=== PATIENT | female | born 1985 | race Caucasian/White ===

== ENCOUNTER 2019-03-06 10:00 | Inpatient (IN) | payer OTHER, SELFPAY ==
[2019-03-06 05:59] VITALS: BMI 25.2
--- NOTE | 2019-03-06 08:47 | OB.TRI.NOTE ---
- Problem List (1) False labor after 37 completed weeks of gestation Status: Acute History of Present Illness Date of Service: 03/06/19 Was patient seen by the physician?: Yes Reason For Visit: R/O LABOR Date of Service: 03/06/19 Final NIDHI: 03/17/19 Final NIDHI Source: US <20 weeks Gestational age: 38 Weeks and 3 Days History of Present Illness: Patient presents to hospital triage after having regular contractions q 4-5 minutes and lasting 30-60seconds in length. Patient at this time reports she has not been timing contractions and she believes they are the same length and duration; she notes she also has lost her mucus plug. Patient is calmly talking and no contractions were witnessed in the 10 minutes that this provider was in the room. Allergies Sulfa (Sulfonamide Antibiotics) Adverse Reaction (Verified 03/06/19 06:37) Unknown pt reports family hx of sulfa allergy, pt states she has never taken this med, just avoids it due to family hx Review of Systems Constitutional: Denies: Chills, Fever, Weight Change HEENT: Denies: Head Aches, Sinus Congestion, Sinus Drainage Cardiovascular: Denies: Chest Pain, Palpitations Respiratory: Denies: Cough, Shortness of breath at rest, Sputum production Gastrointestinal: Denies: Abdominal Pain, Nausea, Vomiting Genitourinary: Denies: Dysuria Musculoskeletal: Denies: Joint Pain, Joint Tenderness Skin: Denies: Rash, Wounds Neurological: Denies: Numbness, Tingling, Focal weakness Psychiatric: Denies: Anxiety, Depression, Homicidal Ideations, Suicidal Ideations Hematologic/ Lymphatic: Denies: Easy Bruising, Easy Bleeding Physical Exam Vitals: VSS, Afebrile General: Alert, Oriented x3, No apparent distress HEENT: Atraumatic, Normocephalic. 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 Negative for: Vulvar lesions Estimated gestational size: Appropriate for gestational size Presentation: Cephalic Cervix Dilation (cm): 3 - posterior cervix Station: -2 Effacement (%): 60 NST - FHR Rate Baby A Baseline: Category I FHT Variability:: Moderate Accelerations:: 15 x 15 Decelerations:: None NST Reactive:: Yes, Appropriate for gestational age FHR Category:: Category I Uterine Activity:: No palpable contractions noted Impression/Plan 33 y/o @ 38+3 weeks, Cateogyr I FHT, False Labor P: 1) Discharge patient to home with labor and [facility] precautions 2) RTC in office as scheduled Reta SMART
[2019-03-06] MEDS: Lactated Ringers 1,000 ML 50 ML IV ×2 (11:00→12:10)
[2019-03-06 11:20] LABS: Absolute Lymphocyte Count 1.95 X10^3/ul (0.83-4.51); Absolute Neutrophil Count 7.9 X10^3/uL (2.0-7.7); Basophil# 0.01 X10^3/uL; Basophil% 0.1 % (0-1); Eosinophil# 0.02 X10^3/uL; Eosinophils% 0.2 % (0-5); Hematocrit 37.7 % (37-47); Hemoglobin 13.3 g/dl (12.0-15.0); Lymphocyte # 1.95 X10^3/ul (4.0); Lymphocyte % 18.7 % (19-41); Mean Corp Hgb Conc 35.3 g/gl (32-36); Mean Corpuscular Hgb 32.4 pg (27.0-32.0); Mean Platelet Vol. 10.6 fl (6.2-12.0); Monocyte# 0.55 X10^3/uL; Monocyte% 5.3 % (0-10); Neutrophil # 7.87 X10^3/uL (2.7-7.7); Neutrophil % 75.5 % (47-70); Platelet Count 176 K/mm3 (150-450); RBC Distribution Width CV 13.1 % (11.6-14.6); RBC Distribution Width SD 43.1 fl (35.1-43.9); White Blood Count 10.4 K/mm3 (4.4-11.0)
[2019-03-06 11:22] LABS: POSITIVE COUNT NO; POSITIVE DIFFERENTIAL NO; POSITIVE MORPHOLOGY NO
--- NOTE | 2019-03-06 11:25 | HP.PCM_ITS ---
- Problem List (1) False labor after 37 completed weeks of gestation Status: Resolved (2) Active labor at term Status: Acute History Date of Admission: 03/06/19 Final NIDHI: 03/17/19 Final NIDHI Source: US <20 weeks Gestational age: 38 Weeks and 3 Days History of this : This is a 33 year-old, G [], P [], at weeks gestational age. Allergies Sulfa (Sulfonamide Antibiotics) Adverse Reaction (Verified 03/06/19 06:37) Unknown pt reports family hx of sulfa allergy, pt states she has never taken this med, just avoids it due to family hx Home Medications: Home Medications Vits 1 tab PO DAILY 04/03/15 Smoking Status: Never smoker Alcohol: None Number of Fetus(es): 1 Heart Tracing: Baseline 145, moderate variability, +accels, few early decels TOCO Analysis: Ctx q 1-4 minutes, mild to moderate palpation History Past Pregnancies: Past Pregnancies Delivery Date Name GA/Weeks Outcome Route Weight Infant Gender Labor Length Anesthesia Delivery Location Provider FOB Labs: See [facility] Record for Labs Expected Delivery Method: Spontaneous Vaginal Describe any other labor & delivery plans:: Patient desires epidural Number of Visits: >12 Review of Systems Constitutional: Denies: Chills, Fever, Weight Change HEENT: Denies: Head Aches, Sinus Congestion, Sinus Drainage Cardiovascular: Denies: Chest Pain, Palpitations Respiratory: Denies: Cough, Shortness of breath at rest, Sputum production Gastrointestinal: Denies: Abdominal Pain, Nausea, Vomiting Genitourinary: Denies: Dysuria Musculoskeletal: Denies: Joint Pain, Joint Tenderness Skin: Denies: Rash, Wounds Neurological: Denies: Numbness, Tingling, Focal weakness Psychiatric: Denies: Anxiety, Depression, Homicidal Ideations, Suicidal Ideati ons Hematologic/ Lymphatic: Denies: Easy Bruising, Easy Bleeding Physical Exam Vitals: See Nursing note for vital signs - VSS, Afebrile General: Alert, Oriented x3, No apparent distress HEENT: Atraumatic, Normocephalic. 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 Negative for: Vulvar lesions Estimated gestational size: Appropriate for gestational size - EFW = 7# Presentation: Cephalic Cervix Dilation (cm): 4 - Per RN Station: -2 Effacement (%): 80 Assessment/Plan All Active Problems False labor after 37 completed weeks of gestation (Resolved) Active labor at term (Acute) This is a 33 year-old, G [3], P [2], at 38+3 weeks gestational age, Active Labor, Category I FHT. P: 1) Admit patient for labor - patient has now changed cervix 2) Patient desires epidural - epidural on request 3) Dr. Romo notified of admission 4) Anticipate Reta Castro APRN-VLADISLAV
[2019-03-06] MEDS: fentaNYL-bupivacaine (epidural) 100 ML BAG EPIDURAL (12:09)
--- NOTE | 2019-03-06 12:42 | PN.OBGYN_ITS ---
Patient Problems: Active and Suspected Problems Active labor at term (Acute) Subjective: Patient is comfortable after receiving her epidural, patient reports comfort now. Patient requests SVE and is open to AROM if baby is well positioned to help augment labor. Objective: VSS, Afebrile FHT baseline 150, moderate variability, + accels, rare variable decels noted Ctx q 2-3 minutes, palpate moderately strong SVE = 5/80/-1, AROM for clear to pink-tinged fluid - Physical Exam General: Alert, Oriented x3, Cooperative HEENT: Atraumatic, Normocephalic Neck: Supple Lungs: Normal air movement Cardiovascular: Regular rate, No murmurs Abdomen: Soft, Non Tender Extremities: No edema, Capillary Refill Less than 3 Seconds Skin: No rashes, No breakdown Musculoskeletal: No Tenderness to Palpation of Joints or Extremities Neurological: Cranial nerves II-XII grossly intact Psych/Mental Status: Normal Affect, Appropriate Weight: 146 lb 12.8 oz Body Mass Index (BMI) 25.2 Laboratory Tests Past 24 Hrs 03/06/19 03/06/19 11:00 11:00 WBC 10.4 RBC 4.10 L Hgb 13.3 Hct 37.7 MCV 92.0 MCH 32.4 H MCHC 35.3 RDW 13.1 RDW Differential 43.1 Plt Count 176 MPV 10.6 Immature Gran % (Auto) 0.200 Neut % (Auto) 75.5 H Lymph % (Auto) 18.7 L [place] % (Auto) 5.3 Eos % (Auto) 0.2 Baso % (Auto) 0.1 Absolute Neuts (auto) 7.9 H Absolute Lymphs (auto) 1.95 Total Counted Not Reportable Blood Type O POSITIVE Antibody Screen NEGATIVE Medical Necessity - Tobacco Use Smoking Status: Never smoker Assessment/Plan All Active Problems False labor after 37 completed weeks of gestation (Resolved) Active labor at term (Acute) 33 y/o , Category I FHT, Active Labor, AROM for Labor Augmentation P: 1) continue present management 2) Anticipate 3) Dr. Demetrius SCHAEFFER OB back-up updated about patient status Reta Castro APRN-CNM
--- NOTE | 2019-03-06 13:53 | PN.OBGYN_ITS ---
Patient Problems: Active and Suspected Problems Active labor at term (Acute) Subjective: Variable decels noted so RN checked patient noted that cervix was 8cm dilated. Kitchen Help Handyman called to room to assess patient. Objective: VSS, Afebrile FHT baseline 120, moderate variability, repetitive variable decels noted Ctx q 2-3 minutes, moderately strong to palpation SVE = 9/100/-1, pink tinged fluid noted on glove - Physical Exam Weight: 146 lb 12.8 oz Body Mass Index (BMI) 25.2 Intake and Output for Last 24 Hours 03/04/19 03/05/19 03/06/19 23:59 23:59 23:59 Intake Total 1200 / 1200 Balance 1200 / 1200 Laboratory Tests Past 24 Hrs 03/06/19 03/06/19 11:00 11:00 WBC 10.4 RBC 4.10 L Hgb 13.3 Hct 37.7 MCV 92.0 MCH 32.4 H MCHC 35.3 RDW 13.1 RDW Differential 43.1 Plt Count 176 MPV 10.6 Immature Gran % (Auto) 0.200 Neut % (Auto) 75.5 H Lymph % (Auto) 18.7 L [place] % (Auto) 5.3 Eos % (Auto) 0.2 Baso % (Auto) 0.1 Absolute Neuts (auto) 7.9 H Absolute Lymphs (auto) 1.95 Total Counted Not Reportable Blood Type O POSITIVE Antibody Screen NEGATIVE Medical Necessity - Tobacco Use Smoking Status: Never smoker Assessment/Plan All Active Problems False labor after 37 completed weeks of gestation (Resolved) Active labor at term (Acute) 33 y/o , Category II FHT, Transition Stage of Labor P: 1) Encourage position changes\ 2) Anticipate Reta Castro PASSENGER FLAGMAN-CNM
[2019-03-06] MEDS: Oxytocin 30 units/NS 500 ml 30 UNITS/500 ML IV.SOLN 334 UNITS IV (15:29)
--- NOTE | 2019-03-06 15:40 | PCM.OPRPT ---
Problem List (1) False labor after 37 completed weeks of gestation Status: Resolved (2) Active labor at term Status: Acute Report of Operation Date of Procedure: 03/06/19 Pre-Operative Diagnosis: Active Labor @ 38+3 weeks Post-Operative Diagnosis: of Viable Baby Boy after Category 2 Tracing Vaginal Delivery Maternal Presentation: Active Labor Amniotic Membrane Rupture Type: Artificial Amniotic Fluid Description: Clear Final NIDHI: 03/17/19 Final NIDHI Source: US <20 weeks Gestational age: 38 Weeks and 3 Days Date of Procedure: 03/06/19 Pre-Operative Diagnosis: Spontaneous Labor Post-Operative Diagnosis: of Viable Boy Baby fllowing Category II FHT during 2nd stage of labor Surgery/ Procedure Performed: Spontaneous Vaginal Delivery Type of Anesthesia: Epidural Description of Procedure: Repetitive deep variables continued to be noted during pushing, fatimah initially to 80-90s but then progressively become in the 50-70's with slight increase of baseline noted. After pushing for almost 1 hour, Dr. Romo OB back-up called in on standby for possible VAVD. Patient pushed well with next [address] [facility] Baby then delivered with next contraction over intact perineum at 1525. head delivered OA, restituted to FRANCISCO J and then LOP. mouth and nose bulb suctioned on perineum by Dr. Romo and had spontaneous cry and respirations. then placed on maternal chest where they were dried and stimulated. Apgars 8 and 9. Weight pending. Umbilical cord clamped and cut once it stopped pulsing. Cold blood sample collected for maternal bloodtype. Placenta then delivered spontaneously via Guzmán mechanism intact with 3VC. FF midline 3FB below umbilicus to massage. IV pitocin infusing per protocol for active management of the 3rd stage. Upon inspection of vaginal vault, no lacerations noted. No repair done. Vaginal sweep negative. Sponge and needle count correct. Baby to breast, [id number] initiated. Bonding started. Presentation: Vertex, FRANCISCO J Placental Delivery Description: Spontaneous Placenta Disposition: [facility] Cord Vessel Description: 3 Vessels Cord Entanglement: Around neck x 1, loose Estimated Blood Loss: 100 A gender: Male (1 minute): 8 (5 minute): 9 Episiotomy Description: None Laceration: None Medications given after delivery: IV Pitocin Complications: None
--- NOTE | 2019-03-06 15:49 | OP.PCM_ITS ---
Problem List (1) False labor after 37 completed weeks of gestation Status: Resolved (2) Active labor at term Status: Acute Report of Operation Date of Procedure: 03/06/19 Pre-Operative Diagnosis: Active Labor @ 38+3 weeks Post-Operative Diagnosis: of Viable Baby Boy after Category 2 Tracing Vaginal Delivery Maternal Presentation: Active Labor Amniotic Membrane Rupture Type: Artificial Amniotic Fluid Description: Clear Final NIDHI: 03/17/19 Final NIDHI Source: US <20 weeks Gestational age: 38 Weeks and 3 Days Date of Procedure: 03/06/19 Pre-Operative Diagnosis: Spontaneous Labor Post-Operative Diagnosis: of Viable Boy Baby fllowing Category II FHT during 2nd stage of labor Surgery/ Procedure Performed: Spontaneous Vaginal Delivery Type of Anesthesia: Epidural Description of Procedure: Repetitive deep variables continued to be noted during pushing, fatimah initially to 80-90s but then progressively become in the 50-70's with slight increase of baseline noted. After pushing for almost 1 hour, Dr. Romo OB back-up called in on standby for possible VAVD. Patient pushed well with next [address] [facility]. Baby then delivered with next contraction over intact perineum at 1525. head delivered OA, restituted to FRANCISCO J and then LOP. mouth and nose bulb suctioned on perineum by Dr. Romo and had spontaneous cry and respirations. then placed on maternal chest where they were dried and stimulated. Apgars 8 and 9. Weight pending. Umbilical cord clamped and cut once it stopped pulsing. Cold blood sample collected for maternal bloodtype. Placenta then delivered spontaneously via Guzmán mechanism intact with 3VC. FF midline 3FB below umbilicus to massage. IV pitocin infusing per protocol for active management of the 3rd stage. Upon inspection of vaginal vault, no lacerations noted. No repair done. Vaginal sweep negative. Sponge and needle count correct. Baby to breast, [id number] initiated. Bonding started. Presentation: Vertex, FRANCISCO J Placental Delivery Description: Spontaneous Placenta Disposition: [facility] Cord Vessel Description: 3 Vessels Cord Entanglement: Around neck x 1, loose Estimated Blood Loss: 100 A gender: Male (1 minute): 8 (5 minute): 9 Episiotomy Description: None Laceration: None Medications given after delivery: IV Pitocin Complications: None
[2019-03-06] MEDS: Oxytocin 30 units/NS 500 ml 30 UNITS/500 ML IV.SOLN 167 UNITS IV (15:59)
[2019-03-06 21:28] VITALS: BP 110/61; PULSE 65; RESP 16; TEMP 36.9
[2019-03-06] MEDS: Naproxen 250 MG Tablet 500 MG PO (23:23)
[2019-03-07 00:41] VITALS: BP 129/80; PULSE 62; RESP 16; TEMP 36.9
[2019-03-07 04:16] VITALS: BP 121/79; PULSE 67; RESP 18; TEMP 36.4
[2019-03-07 08:06] VITALS: BP 112/74; PULSE 72; RESP 16; TEMP 37; O2SAT 99
--- NOTE | 2019-03-07 09:05 | PN.OBGYN_ITS ---
Subjective: Doing well per patient and nursing staff. Ambulating and taking PO without difficulty. Voiding and passing flatus. . Planning D/C home today. - Physical Exam General: Alert, Oriented x3, Cooperative HEENT: Atraumatic, Normocephalic Neck: Trachea Midline Lungs: Clear to auscultation, Normal air movement, No rhonchi, No wheeze Cardiovascular: Regular rate, Regular Rhythm, No murmurs Abdomen: Bowel Sounds Present, Soft Extremities: No edema Psych/Mental Status: Normal Affect, Appropriate Vital Signs Temp Pulse Resp BP Pulse Ox 98.6 F 72 16 112/74 99 03/07/19 08:06 03/07/19 08:06 03/07/19 08:06 03/07/19 08:06 03/07/19 08:06 Oxygen Delivery Method Room Air Weight: 146 lb 12.8 oz Body Mass Index (BMI) 25.2 Intake and Output for Last 24 Hours 03/05/19 03/06/19 03/07/19 23:59 23:59 23:59 Intake Total 2602 / 2602 Output Total 1000 / 1000 Balance 1602 / 1602 Laboratory Tests Past 24 Hrs 03/06/19 03/06/19 11:00 11:00 WBC 10.4 RBC 4.10 L Hgb 13.3 Hct 37.7 MCV 92.0 MCH 32.4 H MCHC 35.3 RDW 13.1 RDW Differential 43.1 Plt Count 176 MPV 10.6 Immature Gran % (Auto) 0.200 Neut % (Auto) 75.5 H Lymph % (Auto) 18.7 L [place] % (Auto) 5.3 Eos % (Auto) 0.2 Baso % (Auto) 0.1 Absolute Neuts (auto) 7.9 H Absolute Lymphs (auto) 1.95 Total Counted Not Reportable Blood Type O POSITIVE Antibody Screen NEGATIVE Medical Necessity - Tobacco Use Smoking Status: Never smoker Assessment/Plan All Active Problems False labor after 37 completed weeks of gestation (Resolved) Active labor at term (Acute) A:PPD #1 P: 1) Routine care. and instructions reviewed 2) Follow up in 2 weeks and 6 weeks 3) Discharge home
--- NOTE | 2019-03-07 09:05 | DCINST_ITS ---
Discharge Diet: No Restrictions Discharge Activity: Return to Normal Activity, May Drive, May not drive while taking narcotic pain medications., May Shower, May Take a Tub Bath May resume sexual activity in: 4-6 weeks Weight Bearing Status: Full weight bearing Additional Activity Instructions:: Nothing in the vagina for 4-6 weeks. You may return to work/school in 6 weeks. Call your doctor if your incision/area has: Continuous Slow Oozing, Sudden Increased Bleeding, Increased Pain/ Swelling, Increased Redness, Foul Smelling Discharge Call your doctor if you observe: Fever of 101 or Higher, Inability to urinate, Inability to have a bowel movement, Using more than one pad per hour, Shortness of breath, Chest pain, Increased palpitations (irregular heartbeat), Calf discomfort, Uncontrolled pain Additional Instructions: If you experience any of the following, contact your healthcare provider. * Bleeding that soaks a pad every hour for 2 hours * Fever 100.4 or higher * Unrelieved incision or abdominal pain * Swelling, redness, discharge or bleeding from your incision or episiotomy site * Your incision begins to separate * Problems urinating (including inability to urinate or burning while urinating). * Visual changes * Severe headache * Flu-like symptoms * Pain or redness in one of both of your breasts * Pain, warmth, tenderness or swelling in your legs, especially the calf area * Frequent nausea and vomiting * Symptoms of depression or anxiety If you experience any of the following, call 911 or go to the nearest Emergency Room. * Chest pain * Problems breathing * Seizure activity * Partial or complete paralysis of a body part, slurred speech, weakness or drooping of the face, or a sudden inability to walk or hold your balance Allergies/Adverse Reactions: Allergies Sulfa (Sulfonamide Antibiotics) Adverse Reaction (Verified 03/06/19 06:37) Unknown pt reports family hx of sulfa allergy, pt states she has never taken this med, just avoids it due to family hx Medications to take at Discharge Vits 1 tab PO DAILY 04/03/15 Please Follow Up With: Maggie Romo MD When: Call to make an appointment with your doctor in 2 weeks and 6 weeks. Test Results: Test results from this visit will be discussed in further detail at your follow- up appointment, if applicable.
[2019-03-07] MEDS: Naproxen 250 MG Tablet 500 MG PO ×2 (09:43→18:01)
[2019-03-07 11:47] VITALS: BP 114/77; PULSE 66; RESP 16; TEMP 36.7
[2019-03-07 16:52] VITALS: BP 112/60; PULSE 70; RESP 16; TEMP 36.6; O2SAT 99
--- NOTE | 2019-03-11 14:29 | NURSING ---
On follow up phone call mother doing well and baby nursing well with lots of voids and stools and good weight check with baby doctor. Mother really like Polly Mattson , Tiffany stafford and Jackie in recovery.
== END 2019-03-07 18:40 | disposition home or self-care (01) | DRG 807 ==
LOC: WPOUT 10:39
PROVIDERS: Obstetrics & Gynecology; Admitting Provider Advanced Practice Midwife; Referring Provider Obstetrics & Gynecology; Visit Provider Advanced Practice Midwife
DX: O76 Abnormality in fetal heart rate and rhythm complicating labor and delivery (principal); Z37.0 Single live birth; O69.81X0 Labor and delivery complicated by cord around neck, without compression, not applicable or unspecified; Z3A.38 38 weeks gestation of pregnancy; Z72.0 Tobacco use
CPT/HCPCS: 59025; 59050; 85025; 86850; 86900; 99218; J7120; G0378